=== PATIENT | female | born 1970 | race Caucasian/White ===

== ENCOUNTER 2020-12-17 17:36 | Emergency (ER) | payer MEDICARE, MEDICAID ==
[~2020-12-17] VITALS: Ht 165.1 cm; Wt 108.0 kg
[~2020-12-17 17:36] MED LIST: NO HOME MEDS
[2020-12-17] MEDS ORDERED: aspirin 81mg tab.chew PO ONE (18:40)
[2020-12-17 19:07] LABS: ALANINE AMINOTRANSFERASE 61 U/L (12-78); ALBUMIN 3.4 G/DL (3.4-5.0); ALKALINE PHOSPHATASE 116 IU/L (46-116); ANION GAP 4 (8-16); ASPARTATE AMINO TRANSFERASE 22 U/L (10-37); BILIRUBIN,TOTAL 0.4 MG/DL (0.1-1.0); BLOOD UREA NITROGEN 8 MG/DL (7-18); BUN/CREATININE RATIO 10.3 (6.6-38.0); CALCIUM 8.7 MG/DL (8.5-10.1); CHLORIDE 104 MMOL/L (99-107); CREATININE 0.78 MG/DL (0.40-0.90); GLUCOSE 111 MG/DL (70-104); POTASSIUM 4.7 MMOL/L (3.5-5.1); SODIUM 145 MMOL/L (135-145); TOTAL CARBON DIOXIDE 37.1 MMOL/L (24-32); TOTAL PROTEIN 6.8 G/DL (6.4-8.2); eGFR 79 ML/MIN
[2020-12-17 20:33] LABS: HEMOGLOBIN 16.6 g/dl (12.0-16.0); LYMPHOCYTES # (AUTO) 1.3 X10'3 (1.1-4.8); MEAN CORPUSCULAR HEMOGLOBIN 29.3 PG (27.0-31.0); MONOCYTES # (AUTO) 0.6 X10'3 (0-0.9)
[2020-12-17 20:35] LABS: BASOPHILS % (AUTO) 0.5 % (0-1); EOSINOPHILS # (AUTO) 0.1 X10'3 (0-0.9); EOSINOPHILS % (AUTO) 1.6 % (0-6); HEMATOCRIT 51.6 % (35.0-45.0); LYMPHOCYTES % (AUTO) 15.9 % (21-51); MEAN CORPUSCULAR HGB CONC 32.1 g/dL (33.0-36.5); MEAN CORPUSCULAR VOLUME 91.2 FL (78-98); MONOCYTES % (AUTO) 7.8 % (2-12); NEUTROPHILS # (AUTO) 6.1 X10'3 (1.8-7.7); NEUTROPHILS % (AUTO) 74.2 % (42-75); RED BLOOD COUNT 5.66 X10'6 (4.20-5.60); RED CELL DISTRIBUTION WIDTH 16.7 % (11.5-14.5); WHITE BLOOD COUNT 8.3 X10'3 (4.5-11.0)
[2020-12-17 20:52] LABS: PLATELET COUNT 118 X10'3 (140-440)
[2020-12-17 21:10] VITALS: BP 145/76
== END 2020-12-17 21:13 | disposition home or self-care (01) ==
LOC: ER 17:37
DX: M25.512 Pain in left shoulder (principal); Z20.822 Contact with and (suspected) exposure to COVID-19; R07.89 Other chest pain; R61 Generalized hyperhidrosis; R11.0 Nausea; R20.0 Anesthesia of skin; R51.9 Headache, unspecified; G89.29 Other chronic pain; J45.909 Unspecified asthma, uncomplicated; F17.210 Nicotine dependence, cigarettes, uncomplicated; Z90.49 Acquired absence of other specified parts of digestive tract; Z98.890 Other specified postprocedural states; Z72.89 Other problems related to lifestyle; Z88.8 Allergy status to other drugs, medicaments and biological substances
CPT/HCPCS: 36415; 71045; 73030; 80053; 83880; 84484; 85025; 87635; 93005; 99285; C9803